=== PATIENT | female | born 1960 | race Caucasian/White ===

== ENCOUNTER → 2018-07-13 | Outpatient (CLI) | payer OTHER | END | disposition home or self-care (01) | LOC: CFH 15:38 | PROVIDERS: ATTEND Nurse Practitioner | DX: Z12.31 Encounter for screening mammogram for malignant neoplasm of breast (principal) | CPT/HCPCS: 77063; 77067 ==

== ENCOUNTER 2019-04-17 07:17 | Outpatient (CLI) | payer OTHER ==
[2019-04-17 07:38] LABS: BASOPHILS # (AUTO) 0.06 x10^3/uL (0-0.1); BASOPHILS % (AUTO) 1 % (0-1); EOSINOPHILS # (AUTO) 0.14 x10^3/uL (0-0.4); EOSINOPHILS % (AUTO) 2 % (1-7); LYMPHOCYTES # (AUTO) 1.86 x10^3/uL (1-3.4); LYMPHOCYTES % (AUTO) 32 % (22-44); MD NO; MEAN CORPUSCULAR HEMOGLOBIN 29.7 pg (27.0-34.8); MEAN CORPUSCULAR HGB CONC 33.7 g/dL (32.4-35.8); MEAN CORPUSCULAR VOLUME 88.1 fL (80-100); MEAN PLATELET VOLUME 8.4 fL (7.4-10.4); MONOCYTES % (AUTO) 9 % (2-9); NEUTROPHILS # (AUTO) 3.23 x10^3/uL (1.8-6.8); NEUTROPHILS % (AUTO) 56 % (42-75); PLATELET COUNT 298 x10^3/uL (130-400); RED BLOOD COUNT 5.02 x10^6/uL (3.82-5.3); RED CELL DISTRIBUTION WIDTH 12.9 % (9.6-15.2)
[2019-04-17 07:47] LABS: ALBUMIN 3.8 g/dL (3.4-5.0); ANION GAP 8 mmol/L (5-15); CALCIUM 8.3 mg/dL (8.5-10.1); CHLORIDE 106 mmol/L (98-107)
[2019-04-17 07:56] LABS: ALANINE AMINOTRANSFERASE 34 U/L (12-78); ALKALINE PHOSPHATASE 133 U/L (45-117); BILIRUBIN,TOTAL 0.7 mg/dL (0.2-1.0); CHOL/HDL RATIO 2.4; CHOLESTEROL, TOTAL 170 mg/dL (140-239); CREATININE 0.95 mg/dL (0.55-1.02); FREE T4 (FREE THYROXINE) 1.54 ng/dL (0.76-1.46); HDL CHOL % 42 % (28-40); HDL CHOLESTEROL (DIRECT) 71 mg/dL (40-60); LDL CHOLESTEROL,CALCULATED 72 mg/dL (54-169); TOTAL PROTEIN 7.5 g/dL (6.4-8.2); TRIGLYCERIDES 135 mg/dL (50-200); VLDL CHOLESTEROL 27 mg/dL (0-25)
== END 2019-04-17 23:59 | disposition home or self-care (01) ==
LOC: LAB 07:17
PROVIDERS: ATTEND Nurse Practitioner
DX: Z00.00 Encounter for general adult medical examination without abnormal findings (principal); E89.0 Postprocedural hypothyroidism
CPT/HCPCS: 36415; 80053; 80061; 84439; 84443; 85025

== ENCOUNTER → 2019-12-20 | Outpatient (CLI) | payer OTHER ==
[2019-12-20 10:30] LABS: ALANINE AMINOTRANSFERASE 27 U/L (12-78); ALBUMIN 3.8 g/dL (3.4-5.0); ANION GAP 8 mmol/L (5-15); CALCIUM 8.6 mg/dL (8.5-10.1); CHLORIDE 101 mmol/L (98-107); CREATININE 0.93 mg/dL (0.55-1.02)
[2019-12-20 10:40] LABS: ALKALINE PHOSPHATASE 127 U/L (45-117); BILIRUBIN,TOTAL 0.6 mg/dL (0.2-1.0); FREE T4 (FREE THYROXINE) 1.68 ng/dL (0.76-1.46); TOTAL PROTEIN 7.4 g/dL (6.4-8.2)
== END | disposition home or self-care (01) ==
LOC: LAB 10:02
PROVIDERS: ATTEND Nurse Practitioner
DX: E89.0 Postprocedural hypothyroidism (principal); I10 Essential (primary) hypertension; R73.09 Other abnormal glucose
CPT/HCPCS: 36415; 80053; 83036; 84439; 84443

== ENCOUNTER 2020-03-11 18:03 | Emergency (ER) | payer OTHER ==
[~2020-03-11] VITALS: Ht 152.4 cm; Wt 72.6 kg
[2020-03-11 18:56] LABS: BASOPHILS % (AUTO) 0 % (0-1); EOSINOPHILS % (AUTO) 1 % (1-7); LYMPHOCYTES % (AUTO) 22 % (22-44); MEAN CORPUSCULAR HEMOGLOBIN 29.1 pg (27.0-34.8); MEAN CORPUSCULAR HGB CONC 34.1 g/dL (32.4-35.8); MEAN PLATELET VOLUME 8.6 fL (7.4-10.4); MONOCYTES % (AUTO) 8 % (2-9); NEUTROPHILS % (AUTO) 70 % (42-75); PLATELET COUNT 269 x10^3/uL (130-400); RED BLOOD COUNT 5.24 x10^6/uL (3.82-5.3); RED CELL DISTRIBUTION WIDTH 13.7 % (9.6-15.2)
[2020-03-11 18:58] LABS: MD NO
[2020-03-11] MEDS ORDERED: SODIUM CHLORIDE 0.9% 1,000ML IVBOLUS ONE (19:00)
[2020-03-11] MEDS ORDERED: ONDANSETRON 2MG/ML, 2ML IVPush ONE (19:00)
[2020-03-11] MEDS ORDERED: KETOROLAC 30 MG/1 ML IVPush ONE (19:00)
[2020-03-11] MEDS ORDERED: SODIUM CHLORIDE FLUSH 10ML SYR IVF ONE (19:00)
[2020-03-11] MEDS ORDERED: MORPHINE SULFATE 4 MG/ML, 1ML IVPush PRN (19:00)
[2020-03-11 19:01] LABS: CHLORIDE 100 mmol/L (98-107)
[2020-03-11 19:06] LABS: MICROSCOPIC INDICATED
[2020-03-11 19:08] LABS: ALANINE AMINOTRANSFERASE 37 U/L (12-78); ALBUMIN 4.2 g/dL (3.4-5.0); ALKALINE PHOSPHATASE 162 U/L (45-117); ANION GAP 8 mmol/L (5-15); BILIRUBIN,TOTAL 0.7 mg/dL (0.2-1.0); CALCIUM 8.7 mg/dL (8.5-10.1); CREATININE 1.06 mg/dL (0.55-1.02)
[2020-03-11] MEDS ORDERED: ONDANSETRON 2MG/ML, 2ML ONE (19:09)
[2020-03-11] MEDS ORDERED: KETOROLAC 30 MG/1 ML ONE (19:09)
--- NOTE | 2020-03-11 19:26 | NUR ---
RN at bedside. IV started, zofran and toradol given. Dimmed lights per pt. request.
[2020-03-11] MEDS ORDERED: CEFTRIAXONE PMX 1GM/50ML 50 ML IV ONE (19:30)
--- NOTE | 2020-03-11 19:45 | NUR ---
RN at bedside. Pt reports the Toradol helped.
[2020-03-11] MEDS ORDERED: CEFTRIAXONE PMX 1GM/50ML 50 ML ONE (19:50)
--- NOTE | 2020-03-11 19:55 | NUR ---
Rocephin infusing. Updated pt on plan.
--- NOTE | 2020-03-11 20:39 | NUR ---
RN at bedside. Pt denies needs at this time.
--- NOTE | 2020-03-11 20:47 | NUR ---
Pt back from CT. Rocephin infusion complete.
[2020-03-11 21:24] VITALS: BP 131/57
--- NOTE | 2020-03-11 21:32 | NUR ---
IV discontinued. Pt discharged.
== END 2020-03-11 21:34 | disposition home or self-care (01) ==
LOC: ED 21:33
DX: N30.01 Acute cystitis with hematuria (principal); R73.09 Other abnormal glucose; R50.9 Fever, unspecified; R00.0 Tachycardia, unspecified; I10 Essential (primary) hypertension; Z90.49 Acquired absence of other specified parts of digestive tract; Z90.710 Acquired absence of both cervix and uterus
CPT/HCPCS: 36415; 74176; 80053; 81001; 83605; 84145; 85025; 87040; 87077; 87086; 96365; 96375; 99284; J0696; J1885; J2405; J7030; 87186

== ENCOUNTER 2020-11-01 08:29 | Outpatient (CLI) | payer OTHER ==
[2020-11-01 09:28] LABS: CHLORIDE 100 mmol/L (98-107)
[2020-11-01 09:29] LABS: ALANINE AMINOTRANSFERASE 31 U/L (12-78); ALBUMIN 3.9 g/dL (3.4-5.0); ANION GAP 8 mmol/L (5-15); CALCIUM 8.9 mg/dL (8.5-10.1); CREATININE 0.84 mg/dL (0.55-1.02)
[2020-11-01 09:30] LABS: MICROSCOPIC NOT IND
[2020-11-01 09:37] LABS: BASOPHILS % (AUTO) 1 % (0-1); EOSINOPHILS % (AUTO) 2 % (1-7); LYMPHOCYTES % (AUTO) 36 % (22-44); MEAN CORPUSCULAR HEMOGLOBIN 29.4 pg (27.0-34.8); MEAN CORPUSCULAR HGB CONC 34.2 g/dL (32.4-35.8); MEAN PLATELET VOLUME 8.5 fL (7.4-10.4); MONOCYTES % (AUTO) 7 % (2-9); NEUTROPHILS % (AUTO) 55 % (42-75); PLATELET COUNT 285 x10^3/uL (130-400); RED BLOOD COUNT 5.13 x10^6/uL (3.82-5.3); RED CELL DISTRIBUTION WIDTH 13.3 % (9.6-15.2)
[2020-11-01 09:40] LABS: ALKALINE PHOSPHATASE 151 U/L (45-117); BILIRUBIN,TOTAL 0.7 mg/dL (0.2-1.0); CHOL/HDL RATIO 2.7; CHOLESTEROL, TOTAL 210 mg/dL (140-239); HDL CHOL % 37 % (28-40); HDL CHOLESTEROL (DIRECT) 77 mg/dL (40-60); LDL CHOLESTEROL,CALCULATED 103 mg/dL (54-169); LDL/HDL RATIO 1.3 (0.5-3.0); TOTAL PROTEIN 7.9 g/dL (6.4-8.2); TRIGLYCERIDES 150 mg/dL (50-200); VLDL CHOLESTEROL 30 mg/dL (0-25)
== END 2020-11-01 23:59 | disposition home or self-care (01) ==
LOC: LAB 08:29
PROVIDERS: ATTEND Family Medicine
DX: Z01.89 Encounter for other specified special examinations (principal)
CPT/HCPCS: 36415; 80053; 80061; 81003; 82043; 82570; 83036; 84443; 85025; 86803